=== PATIENT | male | born 1985 | race Caucasian/White ===

== ENCOUNTER 2017-05-19 22:12 | Emergency (ER) | payer OTHER ==
[~2017-05-19] VITALS: Ht 180.3 cm; Wt 81.6 kg
[2017-05-19 22:15] VITALS: BP 141/69
[2017-05-19] MEDS ORDERED: AMOX500T PO (22:26)
--- NOTE | 2017-05-19 22:26 | PHYS DOC ---
Past Medical History Past Medical History: Asthma, STD Additional Past Medical Histor: chlamydia Past Surgical History: Other Additional Past Surgical Histo: right hand, dental Alcohol Use: Heavy Drug Use: None Adult General Chief Complaint Chief Complaint: DENTAL PROBLEM HPI HPI Patient is a 32 year old medical presents with dental pain that began yesterday. Patient denies any fever or trismus. Review of Systems Review of Systems Constitutional: See history of present illness Eyes: Denies change in visual acuity, redness, or eye pain [] HENT: Dental pain Musculoskeletal: Denies back pain or joint pain [] Integument: Denies rash or skin lesions [] Neurologic: Denies headache, focal weakness or sensory changes [] Allergies Allergies Allergies Coded Allergies Type Severity Reaction Last Updated Verified No Known Drug Allergies 09/15/15 No Physical Exam Physical Exam Constitutional: Well developed, well nourished, no acute distress, non-toxic appearance. [] HENT: Normocephalic, atraumatic, bilateral external ears normal, oropharynx moist, no oral exudates, nose normal. [] Scattered severe infected dental caries throughout his teeth. Gum erythema noted diffusely with very poor dentition. No drainage. No abscess. Skin: Warm, dry, no erythema, no rash. [] Back: No tenderness, no CVA tenderness. [] Extremities: No tenderness, no cyanosis, no clubbing, ROM intact, no edema. [] Neurologic: Alert and oriented X 3, normal motor function, normal sensory function, no focal deficits noted. [] Psychologic: Affect normal, judgement normal, mood normal. [] Current Patient Data Vital Signs Vital Signs Date Time Temp Pulse Resp B/P (MAP) Pulse Ox O2 Delivery O2 Flow Rate FiO2 05/19/17 22:15 97.9 60 16 97 Room Air 97.9 EKG EKG [] Radiology/Procedures Radiology/Procedures [] Course & Med Decision Making Course & Med Decision Making Pertinent Labs and Imaging studies reviewed. (See chart for details) This is a 32-year-old male patient's presenting today with infected dental caries. Discharged with amoxicillin. Follow-up with a dentist as soon as he can. Dragon Disclaimer Dragon Disclaimer This electronic medical record was generated, in whole or in part, using a voice recognition dictation system. Departure Departure Impression: Primary Impression: Infected dental caries Additional Impression: Dentalgia Disposition: 01 HOME, SELF-CARE Condition: STABLE Referrals: NO PCP (PCP) follow up with your dentist as soon as you can Patient Instructions: Dental Caries Additional Instructions: You were seen for infected dental caries. Complete your antibiotics. Follow-up with your dentist as soon as you can. Scripts Amoxicillin (AMOXICILLIN) 500 Mg Tablet 1 TAB PO TID, #30 TAB Prov: EMILEE MCPHERSON APRN 05/19/17 Problem Qualifiers EMILEE MCPHERSON APRN May 19, 2017 22:26
== END 2017-05-19 22:34 | disposition home or self-care (01) ==
LOC: ER 22:12
DX: K02.9 Dental caries, unspecified (principal); K08.89 Other specified disorders of teeth and supporting structures; J45.909 Unspecified asthma, uncomplicated; Z98.890 Other specified postprocedural states; F10.10 Alcohol abuse, uncomplicated
CPT/HCPCS: 99283

== ENCOUNTER 2019-01-21 20:53 | Emergency (ER) | payer OTHER ==
[~2019-01-21] VITALS: Ht 175.3 cm; Wt 81.6 kg
[~2019-01-21 20:53] MED LIST: AMOX500T PO; CARV6.2511 PO; FOLI1TAB16 PO; THIA100T43 PO
[2019-01-21] MEDS ORDERED: HALOPERIDOL LACTATE 5 MG/ML VIAL. IM ONE (20:54)
[2019-01-21] MEDS ORDERED: MIDAZOLAM HCL/PF 5 MG/5 ML VIAL. NS ONE (20:59)
[2019-01-21 21:28] LABS: BASO % 1 % (0-3); EOS # 0.1 x10^3/uL (0.0-0.7); EOS % 2 % (0-3); HEMATOCRIT 43.8 % (39.0-53.0); HEMOGLOBIN 14.6 g/dL (13.0-17.5); LYMPH # 1.1 x10^3/uL (1.0-4.8); LYMPH % 19 % (24-48); MEAN CORPUSCULAR HEMOGLOBIN 30 pg (25-35); MEAN CORPUSCULAR HGB CONC 34 g/dL (31-37); MEAN CORPUSCULAR VOLUME 90 fL (79-100); MONO # 0.3 x10^3/uL (0.0-1.1); MONO % 6 % (0-9); NEUT # 4.3 x10^3uL (1.8-7.7); NEUT % 72 % (31-73); PLATELET COUNT 262 x10^3/uL (140-400); RED BLOOD COUNT 4.85 x10^6/uL (4.30-5.70); WHITE BLOOD COUNT 5.9 x10^3/uL (4.0-11.0)
[2019-01-21] MEDS ORDERED: IV NORMAL SALINE 1000ML BAG 1,000 ML IV ONE ×2 (21:30)
[2019-01-21 21:42] LABS: CALCIUM 9.3 mg/dL (8.5-10.1); CREATININE 1.4 mg/dL (0.7-1.3); GFR 58.7; POTASSIUM 3.1 mmol/L (3.5-5.1)
[2019-01-21 21:45] LABS: SALIC < 2.8 mg/dL (2.8-20.0)
[2019-01-21 21:46] LABS: ACETAMIN < 2 mcg/ml (10-30); ETHANOL < 10 mg/dL (0-10)
[2019-01-21 21:47] LABS: ALBUMIN 4.1 g/dL (3.4-5.0); ALBUMIN/GLOBULIN RATIO 1.3 (1.0-1.7); TOTAL BILIRUBIN 0.3 mg/dL (0.2-1.0); TOTAL PROTEIN 7.2 g/dL (6.4-8.2)
[2019-01-21 22:06] LABS: BILIRUBIN,URINE NEGATIVE (NEG); CLARITY,URINE CLEAR; COLOR,URINE YELLOW; NITRITE,URINE NEGATIVE (NEG); PROTEIN,URINE NEGATIVE (NEG-TRACE)
[2019-01-21 22:13] LABS: BARBITURATES NEG (NEG); BENZODIAZEPINES POS (NEG); CANNABINOIDS POS (NEG); COCAINE NEG (NEG); HYALINE CASTS, URINE MANY /HPF; METHADONE NEG (NEG); OPIATES NEG (NEG); PHENCYCLIDINE NEG (NEG)
[2019-01-21 22:14] LABS: AMPHETAMINE/METHAMPHETAMINE POS (NEG); BACTERIA,URINE 0 /HPF (0-FEW)
--- NOTE | 2019-01-22 02:34 | PHYS DOC ---
Past Medical History Past Medical History: Anxiety, Asthma, STD Additional Past Medical Histor: chlamydia Past Surgical History: Other Additional Past Surgical Histo: right hand, dental Alcohol Use: Occasionally Drug Use: Marijuana, Methamphetamine Adult General Chief Complaint Chief Complaint: ALTERED MENTAL STATUS HPI HPI Patient is a 33 year old male who is presenting with acute intoxication and agitation brought in by ambulance in restraints apparently possibly use some methamphetamine was very very agitated sweating spitting etc. history limited Additional history obtained from the mother does have a history of suicide attempt in the past but not recently was living with a woman who had been using drugs Review of Systems Review of Systems dobson by acuity Current Medications Current Medications Current Medications Medications (Trade) Dose Ordered Sig/Genaro Start Time Stop Time Status Last Admin Dose Admin Haloperidol Lactate (Haldol Inj) 5 mg 1X ONCE 01/21/19 20:54 01/21/19 21:36 DC 01/21/19 21:38 5 MG Lorazepam (Ativan) 2 mg 1X ONCE 01/21/19 20:54 01/21/19 21:38 DC 01/21/19 21:38 2 MG Midazolam HCl (Versed) 5 mg 1X ONCE 01/21/19 20:59 01/21/19 21:36 DC 01/21/19 21:38 5 MG Sodium Chloride 1,000 ml @ 1,000 mls/hr 1X ONCE 01/21/19 21:30 01/21/19 22:29 DC 01/21/19 21:31 1,000 MLS/HR Allergies Allergies Allergies Coded Allergies Type Severity Reaction Last Updated Verified No Known Drug Allergies 09/15/15 No Physical Exam Physical Exam Constitutional: Well developed,severe distress diaphoretic in restrainsts HENT: Normocephalic, atraumatic, bilateral external ears normal, oropharynx moist, no oral exudates, nose normal. [] Eyes:diltaed pupils Neck: Normal range of motion, no tenderness, supple, no stridor. [] Cardiovascular:tachy Lungs & Thorax: Bilateral breath sounds clear to auscultation [] Abdomen: And altered mental status no tenderness, no masses, no pulsatile masses. [] Skin: diaphoretic Extremities:in restraints difficult to assess Neurologic: Alert agitated, repetitive speech, normal motor function, normal sensory function, no focal deficits noted. [] increased muscle tone Psychologic: agitated Current Patient Data Vital Signs Vital Signs Date Time Temp Pulse Resp B/P (MAP) Pulse Ox O2 Delivery O2 Flow Rate FiO2 01/22/19 00:07 67 16 98 01/21/19 20:53 98.4 123/53 (76) Room Air 98.4 Lab Values Laboratory Tests Test 01/21/19 21:16 01/21/19 21:58 White Blood Count 5.9 x10^3/uL (4.0-11.0) Red Blood Count 4.85 x10^6/uL (4.30-5.70) Hemoglobin 14.6 g/dL (13.0-17.5) Hematocrit 43.8 % (39.0-53.0) Mean Corpuscular Volume 90 fL (79-100) Mean Corpuscular Hemoglobin 30 pg (25-35) Mean Corpuscular Hemoglobin Concent 34 g/dL (31-37) Red Cell Distribution Width 13.0 % (11.5-14.5) Platelet Count 262 x10^3/uL (140-400) Neutrophils (%) (Auto) 72 % (31-73) Lymphocytes (%) (Auto) 19 % (24-48) L Monocytes (%) (Auto) 6 % (0-9) Eosinophils (%) (Auto) 2 % (0-3) Basophils (%) (Auto) 1 % (0-3) Neutrophils # (Auto) 4.3 x10^3uL (1.8-7.7) Lymphocytes # (Auto) 1.1 x10^3/uL (1.0-4.8) Monocytes # (Auto) 0.3 x10^3/uL (0.0-1.1) Eosinophils # (Auto) 0.1 x10^3/uL (0.0-0.7) Basophils # (Auto) 0.0 x10^3/uL (0.0-0.2) Sodium Level 147 mmol/L (136-145) H Potassium Level 3.1 mmol/L (3.5-5.1) L Chloride Level 107 mmol/L (98-107) Carbon Dioxide Level 28 mmol/L (21-32) Anion Gap 12 (6-14) Blood Urea Nitrogen 12 mg/dL (8-26) Creatinine 1.4 mg/dL (0.7-1.3) H Estimated GFR (Cockcroft-Gault) 58.7 BUN/Creatinine Ratio 9 (6-20) Glucose Level 127 mg/dL (70-99) H Calcium Level 9.3 mg/dL (8.5-10.1) Total Bilirubin 0.3 mg/dL (0.2-1.0) Aspartate Amino Transferase (AST) 20 U/L (15-37) Alanine Aminotransferase (ALT) 24 U/L (16-63) Alkaline Phosphatase 79 U/L (46-116) Creatine Kinase 191 U/L (39-308) Total Protein 7.2 g/dL (6.4-8.2) Albumin 4.1 g/dL (3.4-5.0) Albumin/Globulin Ratio 1.3 (1.0-1.7) Salicylates Level < 2.8 mg/dL (2.8-20.0) L Salicylate Last Dose Date Unknown Salicylate Last Dose Time Unknown Acetaminophen Level < 2 mcg/ml (10-30) L Acetaminophen Last Dose Date Unknown Acetaminophen Last Dose Time Unknown Ethyl Alcohol Level < 10 mg/dL (0-10) Urine Collection Type U cath Urine Color Yellow Urine Clarity Clear Urine pH 6.0 Urine Specific [place] 1.025 Urine Protein Negative mg/dL (NEG-TRACE) Urine Glucose (UA) Negative mg/dL (NEG) Urine Ketones (Stick) Negative mg/dL (NEG) Urine Blood Negative (NEG) Urine Nitrite Negative (NEG) Urine Bilirubin Negative (NEG) Urine Urobilinogen Dipstick 1.0 mg/dL (0.2 mg/dL) Urine Leukocyte Esterase Negative (NEG) Urine RBC 11-20 /HPF (0-2) Urine WBC 1-4 /HPF (0-4) Urine Transitional Epithelial Cells Few /LPF Urine Bacteria 0 /HPF (0-FEW) Urine Hyaline Casts Many /HPF Urine Mucus Marked /LPF Urine Opiates Screen Neg (NEG) Urine Methadone Screen Neg (NEG) Urine Barbiturates Neg (NEG) Urine Phencyclidine Screen Neg (NEG) Urine Amphetamine/Methamphetamine Pos (NEG) Urine Benzodiazepines Screen Pos (NEG) Urine Cocaine Screen Neg (NEG) Urine Cannabinoids Screen Pos (NEG) Urine Ethyl Alcohol Neg (NEG) Laboratory Tests 01/21/19 21:16 Laboratory Tests 01/21/19 21:16 EKG EKG sinus tach rate 112 no acute ischemia[] Radiology/Procedures Radiology/Procedures [] Course & Med Decision Making Course & Med Decision Making Pertinent Labs and Imaging studies reviewed. (See chart for details) methamph intox required haldol ativan then versed finally calmed down i reassessed him after restraints he was in no distress, ultimately they were removed. 230 am, po challenge, pt is more alert will d/c to self care. on additional hx he tells me he is not suicidal at this time [] Dragon Disclaimer Dragon Disclaimer This electronic medical record was generated, in whole or in part, using a voice recognition dictation system. Departure Departure Impression: Primary Impression: Drug abuse Disposition: HOME, SELF-CARE Condition: STABLE Patient Instructions: Drug Abuse, FAQs DOC GRANT MD Jan 22, 2019 02:34
[2019-01-22 03:20] VITALS: BP 103/47
--- NOTE | 2019-01-22 07:21 | EKG ---
[facility] [address] [place] [address] Test Date: 2019-01-21 Test Time: 21:18:18 Pat Name: YVES SIMMS Department: Room: Gender: M [employer]: : 1985 Requested By: DOC GRANT Order Number: [id number] Reading MD: Dmitri Dillon Measurements Intervals [place] Rate: 112 P: 62 PA: 156 QRS: 32 QRSD: 94 T: 41 QT: 326 QTc: 447 Interpretive Statements SINUS TACHYCARDIA NONSPECIFIC ST-T WAVE CHANGES. Electronically Signed On 01-29-2019 11:26:30 CDT by Dmitri Dillon
--- NOTE | 2019-01-22 08:00 | RAD ---
Examination: PORTABLE CHEST 1V History: ALTERED MENTAL STATUS. Comparison/Correlation: 10/03/2018 portable chest x-ray exam Findings: Portable supine frontal view of the chest was obtained. Heart size and pulmonary vasculature are normal. No infiltrate or pleural effusion. Bony structures are grossly unremarkable. No pneumothorax. Impression: No active disease. Electronically signed by: Jarett Booth MD (01/22/2019 7:57 AM) [facility]
== END 2019-01-22 03:37 | disposition home or self-care (01) ==
LOC: ER 20:53
DX: F15.229 Other stimulant dependence with intoxication, unspecified (principal); F12.229 Cannabis dependence with intoxication, unspecified; R45.1 Restlessness and agitation; R41.82 Altered mental status, unspecified; R61 Generalized hyperhidrosis; F41.9 Anxiety disorder, unspecified; J45.909 Unspecified asthma, uncomplicated
CPT/HCPCS: 36415; 71045; 80053; 80307; 80329; 81001; 82550; 85025; 93005; 96360; 96372; 99285; G0480; J1630; J2060; J2250; J7030

== ENCOUNTER 2019-04-05 16:02 | Emergency (ER) | payer OTHER ==
[~2019-04-05] VITALS: Ht 180.3 cm; Wt 77.1 kg
[2019-04-05 16:13] VITALS: BP 146/71
--- NOTE | 2019-04-05 16:28 | PHYS DOC ---
Past Medical History Past Medical History: Anxiety, Asthma, STD Additional Past Medical Histor: chlamydia Past Surgical History: Other Additional Past Surgical Histo: right hand, dental Additional Information: 1 PPD Alcohol Use: Heavy Drug Use: Marijuana, Methamphetamine Adult General Chief Complaint Chief Complaint: WRIST PAIN HPI HPI Patient is a 33 year old male who presents with 7 out of 10 throbbing intermittent left lateral wrist pain that began yesterday after he got hit by a sword sheath playing with his friend. States the pain is worse on touching the left lateral wrist as well as certain movements. He states the pain is relieved on immobilization. Review of Systems Review of Systems Constitutional: Denies fever or chills [] Musculoskeletal: Reports left wrist pain Integument: Denies rash or skin lesions [] Neurologic: Denies headache, focal weakness or sensory changes [] All other systems were reviewed and found to be within normal limits, except as documented in this note. Allergies Allergies Allergies Coded Allergies Type Severity Reaction Last Updated Verified No Known Drug Allergies 09/15/15 No Physical Exam Physical Exam Constitutional: Well developed, well nourished, no acute distress, non-toxic appearance. [] ] Skin: Warm, dry, no erythema, no rash. [] Back: No tenderness, no CVA tenderness. [] Extremities: Left lateral wrist with bruising and a small amount of soft tissue swelling. Tenderness on palpation of the left lateral wrist. Full range of motion to the left wrist and fingers. Adequate radial, medial, ulnar sensation to the left upper extremity. +2 left radial pulse. Cap refill less than 2 seconds and left fingers. Neurologic: Alert and oriented X 3, normal motor function, normal sensory function, no focal deficits noted. [] Psychologic: Affect normal, judgement normal, mood normal. [] Current Patient Data Vital Signs Vital Signs Date Time Temp Pulse Resp B/P (MAP) Pulse Ox O2 Delivery O2 Flow Rate FiO2 04/05/19 16:13 98.8 109 16 146/71 (96) 96 Room Air 98.8 EKG EKG [] Radiology/Procedures Radiology/Procedures []PROCEDURE: WRIST 3V LEFT Three-view left wrist dated 04/05/2019. No comparison available. CLINICAL INDICATION: Pain after injury. FINDINGS: 3 views of left wrist show transverse fracture through the base of the ulnar styloid. The distal radius is intact. Carpal bones are intact. Mild degenerative change of the scaphotrapezial joint. No additional acute osseous or articular abnormality. There is also mild degenerative change of the fifth carpometacarpal joint. IMPRESSION: 1. Avulsion fracture at the base of the ulnar styloid. Mild degenerative changes as described. Electronically signed by: Ld Barrera MD (04/05/2019 4:50 PM) [facility] [place] DICTATED and SIGNED BY: LD BARRERA MD DATE: 04/05/19 165 Course & Med Decision Making Course & Med Decision Making Pertinent Labs and Imaging studies reviewed. (See chart for details) This is a 33-year-old male patient who presents to the ED today with left wrist contusion after being hit with a sword sheath playing with a friend. Left wrist x-rays interpreted by radiologist was noted for -Avulsion fracture at the base of the ulnar styloid. Patient was placed in ulnar gutter splint by the ED RN, neurovascular exam done by me is intact. Ice elevation encouraged. Provided orthopedic doctor for follow-up as an outpatient next week Jose A Disclaimer Jose A Disclaimer This electronic medical record was generated, in whole or in part, using a voice recognition dictation system. Departure Departure Impression: Primary Impression: Fracture of styloid process of left ulna Disposition: HOME, SELF-CARE Condition: STABLE Referrals: NO PCP (PCP) FARHAD GAN II, MD follow up next week Patient Instructions: Ulnar Fracture Additional Instructions: You have left ulnar styloid fracture. Please contact the provided orthopedic doctor on Sunday morning and set up a follow-up appointment. Ice elevate the extremity. Scripts Hydrocodone/Apap 5-325 (NORCO 5-325 TABLET) 1 Each Tablet 1 TAB PO Q6HRS, #10 TAB Prov: EMILEE MCPHERSON APRN 04/05/19 Problem Qualifiers Primary Impression: Fracture of styloid process of left ulna Encounter type: initial encounter Fracture type: closed Fracture alignment: nondisplaced Qualified Codes: S52.615A - Nondisplaced fracture of left ulna styloid process, initial encounter for closed fracture EMILEE MCPHERSON APRN Apr 05, 2019 16:28
--- NOTE | 2019-04-05 16:53 | RAD ---
Three-view left wrist dated 04/05/2019. No comparison available. CLINICAL INDICATION: Pain after injury. FINDINGS: 3 views of left wrist show transverse fracture through the base of the ulnar styloid. The distal radius is intact. Carpal bones are intact. Mild degenerative change of the scaphotrapezial joint. No additional acute osseous or articular abnormality. There is also mild degenerative change of the fifth carpometacarpal joint. IMPRESSION: 1. Avulsion fracture at the base of the ulnar styloid. Mild degenerative changes as described. Electronically signed by: Ld Barrera MD (04/05/2019 4:50 PM) [facility]
[2019-04-05] MEDS ORDERED: HYDR-3164 PO (17:14)
== END 2019-04-05 17:37 | disposition home or self-care (01) ==
LOC: ER 16:02
DX: S52.615A Nondisplaced fracture of left ulna styloid process, initial encounter for closed fracture (principal); J45.909 Unspecified asthma, uncomplicated; F17.200 Nicotine dependence, unspecified, uncomplicated; F10.20 Alcohol dependence, uncomplicated; Y90.9 Presence of alcohol in blood, level not specified; W22.8XXA Striking against or struck by other objects, initial encounter; Y93.89 Activity, other specified; Y92.89 Other specified places as the place of occurrence of the external cause; Y99.8 Other external cause status
CPT/HCPCS: 29125; 73110; 99284